=== PATIENT | female | born 1965 | race Two or more races ===

== ENCOUNTER 2019-11-26 08:46 | Day surgery (SDC) | payer OTHER ==
[~2019-11-26 08:46] MED LIST: ASTELIN137 MCG NS; NASACORT AQ16.5 GM NS; VITA PO; VITAMIN D31 ML PO; XYZAL PO; ZYRTEC10 MG PO; [UNRECOGNIZED DRUG - SUPPLY] MC
[2019-11-26] MEDS ORDERED: PERCOCET 5-3251 EACH PO (15:17)
== END 2019-11-26 20:20 | disposition home or self-care (01) ==
LOC: CIR.AMB 08:46
PROVIDERS: ATTEND Obstetrics & Gynecology Gynecology
DX: N95.0 Postmenopausal bleeding (principal)

== ENCOUNTER 2020-08-21 11:45 | Inpatient (IN) | payer OTHER ==
[~2020-08-21] VITALS: Ht 160 cm; Wt 90.7 kg
[~2020-08-21 11:45] MED LIST changes: +PERCOCET 5-3251 EACH PO
[2020-08-21] MEDS ORDERED: ZYRTEC10 M3 PO (14:29)
[2020-08-27] MEDS ORDERED: TRAMADOL HCL50 MG PO (07:30)
[2020-08-27] MEDS ORDERED: ONDANSETRON ODT4 MG PO (07:30)
[2020-08-27] MEDS ORDERED: PROTONIX40 MG PO (07:30)
== END 2020-08-27 09:27 | disposition home or self-care (01) | DRG 743 ==
LOC: SURG-SUITE 08-25 07:50 → O/R 08-25 07:50 → OB/GYN 08-25 08:45 → SURG-SUITE 08-25 14:42
PROVIDERS: ADMIT Obstetrics & Gynecology Gynecology; ATTEND Obstetrics & Gynecology Gynecology
PROC: 0UT20ZZ Resection of Bilateral Ovaries, Open Approach (ICD-10-PCS; 2020-08-25)
PROC: 0UT70ZZ Resection of Bilateral Fallopian Tubes, Open Approach (ICD-10-PCS; 2020-08-25)
PROC: 0USG0ZZ Reposition Vagina, Open Approach (ICD-10-PCS; 2020-08-25)
PROC: 0UT90ZZ Resection of Uterus, Open Approach (ICD-10-PCS; principal; 2020-08-25 08:45)
DX: N87.0 Mild cervical dysplasia (principal); N80.0 Endometriosis of uterus; N83.292 Other ovarian cyst, left side; N83.291 Other ovarian cyst, right side; N95.0 Postmenopausal bleeding; N86 Erosion and ectropion of cervix uteri

== ENCOUNTER 2021-06-03 11:14 | Emergency (ER) | payer OTHER ==
[~2021-06-03] VITALS: Ht 160 cm; Wt 90.7 kg
[~2021-06-03 11:14] MED LIST changes: +ONDANSETRON ODT4 MG PO; +PROTONIX40 MG PO; +TRAMADOL HCL50 MG PO; +ZYRTEC10 M3 PO
[2021-06-03] MEDS ORDERED: ULTRAM50 MG PO (14:13)
== END 2021-06-03 14:27 | disposition home or self-care (01) ==
LOC: ER 11:14
DX: M54.50 Low back pain, unspecified (principal)

== ENCOUNTER 2022-07-23 09:28 | Emergency (ER) | payer OTHER ==
[~2022-07-23] VITALS: Ht 160 cm; Wt 90.7 kg
[~2022-07-23 09:28] MED LIST changes: +ULTRAM50 MG PO
[2022-07-23] MEDS ORDERED: LYRICA100 MG PO (10:22)
[2022-07-23] MEDS ORDERED: METHOTREXA25 MG/1 M5 SUBCUTANEO (10:22)
[2022-07-23] MEDS ORDERED: ATORVASTATIN CA10 MG PO (10:22)
== END 2022-07-23 11:33 | disposition home or self-care (01) ==
LOC: ER 09:28
DX: M50.20 Other cervical disc displacement, unspecified cervical region (principal); M19.90 Unspecified osteoarthritis, unspecified site; Z88.6 Allergy status to analgesic agent